=== PATIENT | female | born 1995 | race Caucasian/White ===

== ENCOUNTER 2023-11-30 12:14 | Outpatient (CLI) | payer OTHER, SELFPAY ==
--- NOTE | 2023-11-30 12:55 | W.ANESCHARGE ---
Anesthesia Charges Start Date/Time Anesthesia Start Date: 11/30/23 Anesthesia Start Time: 12:51 Stop Date/Time Anesthesia Stop Date: 11/30/23 Anesthesia Stop Time: 13:15
--- NOTE | 2023-11-30 13:20 | W.ANESCHARGE ---
Anesthesia Charges Start Date/Time Anesthesia Start Date: 11/30/23 Anesthesia Start Time: 12:51 Stop Date/Time Anesthesia Stop Date: 11/30/23 Anesthesia Stop Time: 13:15
== END 2023-11-30 12:15 | disposition home or self-care (01) ==
LOC: OP CLINIC 12:19
PROVIDERS: PCP Family Medicine; Visit Provider Internal Medicine Gastroenterology
DX: Z12.11 Encounter for screening for malignant neoplasm of colon (principal); K63.5 Polyp of colon; Z80.0 Family history of malignant neoplasm of digestive organs
CPT/HCPCS: 00811; 45380; 88305; J2704

== ENCOUNTER 2024-09-07 08:45 | Outpatient (CLI) | payer OTHER, SELFPAY | END 2024-09-07 08:46 | disposition home or self-care (01) | LOC: NFLDREF 09-10 12:11 | PROVIDERS: PCP Family Medicine; Referring Provider Family Medicine; Visit Provider Nurse Practitioner Family | DX: R82.90 Unspecified abnormal findings in urine (principal); N30.00 Acute cystitis without hematuria; R03.0 Elevated blood-pressure reading, without diagnosis of hypertension | CPT/HCPCS: 87086 ==

== ENCOUNTER 2025-01-20 07:54 | Outpatient (CLI) | payer OTHER, SELFPAY ==
--- NOTE | 2025-01-20 09:25 | P.ANES_ITS ---
Anesthesia Charges Start Date/Time Anesthesia Start Date: 01/20/25 Anesthesia Start Time: 08:44 Stop Date/Time Anesthesia Stop Date: 01/20/25 Anesthesia Stop Time: 09:23 Coding CPT Codes CPT Codes: ANES UPR GI NDSC PX NOS - 59589 ([id number]) P3 - PATIENT W/SEVERE SYS DISEASE, QZ - BI REPORT DEVELOPER SVC W/O TANK TRUCK OPERATOR BY
--- NOTE | 2025-01-20 09:25 | W.ANESCHARGE ---
Anesthesia Charges Start Date/Time Anesthesia Start Date: 01/20/25 Anesthesia Start Time: 08:44 Stop Date/Time Anesthesia Stop Date: 01/20/25 Anesthesia Stop Time: 09:23 Coding CPT Codes CPT Codes: ANES UPR GI NDSC PX NOS - 12789 ([id number]) P3 - PATIENT W/SEVERE SYS DISEASE, QZ - ROTARY OPERATOR SVC W/O NETWORK OPERATIONS SPECIALIST BY
== END 2025-01-20 07:55 | disposition home or self-care (01) ==
LOC: OP CLINIC 07:55
PROVIDERS: PCP Family Medicine; Visit Provider Internal Medicine Gastroenterology
DX: Z12.11 Encounter for screening for malignant neoplasm of colon (principal); Z15.09 Genetic susceptibility to other malignant neoplasm; K31.7 Polyp of stomach and duodenum; Z80.0 Family history of malignant neoplasm of digestive organs; Z86.0101 Personal history of adenomatous and serrated colon polyps
CPT/HCPCS: 00731; 43239; 45378; 88305; J2704; J3490